=== PATIENT | female | born 1995 ===

== ENCOUNTER 2017-08-17 17:24 | Emergency (ER) | payer OTHER ==
[2017-08-17 17:36] VITALS: BP 120/65; PULSE 58; RESP 18; TEMP 98; O2SAT 100
--- NOTE | 2017-08-17 17:57 | ED PDOC ---
HPI: General Adult Time Seen by Provider: 08/17/17 17:47 Chief Complaint (Nursing): GI Problem History Per: Patient (Hemorrhoids and rectal pain. Scant bleeding when wiping. Denies abd pain.) Onset/Duration Of Symptoms: Days (2) Current Symptoms Are (Timing): Still Present Severity: Mild Pain Scale Rating Of: 2 Past Medical History Vital Signs: Last Vital Signs Temp 98.0 F 08/17/17 17:34 Pulse 58 L 08/17/17 17:34 Resp 18 08/17/17 17:34 BP 120/65 08/17/17 17:34 Pulse Ox 100 08/17/17 17:34 - Medical History PMH: Gastritis - Family History Family History: States: Unknown Family Hx - Immunization History Hx Tetanus Toxoid Vaccination: No Hx Influenza Vaccination: No Hx Pneumococcal Vaccination: No - Home Medications Home Medications: Ambulatory Orders Medication Instructions Recorded Cyclobenzaprine [Cyclobenzaprine 10 mg PO Q8 #9 tab 07/02/17 HCl] Ibuprofen [Motrin] 600 mg PO TID #30 tab 07/02/17 Omeprazole Magnesium [Prilosec Otc] 20 mg PO DAILY 07/02/17 Docusate Sodium [Colace] 100 mg PO HS #10 capsule 08/17/17 Hydrocortisone-Pramoxine 1%-1% 1 appl TP DAILY #10 aer 08/17/17 [Proctofoam-Hc 1%-1%] - Allergies Allergies/Adverse Reactions: Allergies Allergy/AdvReac Type Severity Reaction Status Date / Time No Known Allergies Allergy Verified 08/17/17 17:34 Review of Systems Constitutional: Negative for: Fever Gastrointestinal: Positive for: Abdominal Pain, Rectal Pain Physical Exam - Physical Exam Appears: Positive for: Non-toxic, In Acute Distress Gastrointestinal/Abdominal: Positive for: Bowel Sounds, Soft. Negative for: Tenderness Rectal: Positive for: Hemorrhoids (ext, nonthrombosed. reducible) - ECG O2 Sat by Pulse Oximetry: 100 Disposition - Clinical Impression Clinical Impression: Hemorrhoids - Patient ED Disposition Is Patient to be Admitted: No Counseled Patient/Family Regarding: Diagnosis, Need For Followup, Rx Given - Disposition Referrals: [facility] [Outside] Disposition: Routine/Home Disposition Time: 17:57 Condition: FAIR Prescriptions: Docusate Sodium [Colace] 100 mg PO HS #10 capsule Hydrocortisone-Pramoxine 1%-1% [Proctofoam-Hc 1%-1%] 1 appl TP DAILY #10 aer Instructions: Hemorrhoids (ED) Forms: [facility] (Greenlandic) Print Language: CYPRIOT
== END 2017-08-17 18:44 | disposition home or self-care (01) ==
LOC: H.ER 17:24
DX: K64.9 Unspecified hemorrhoids (principal)

== ENCOUNTER 2017-10-24 05:06 | Emergency (ER) | payer OTHER ==
[2017-10-24 05:16] VITALS: BP 110/53; PULSE 67; RESP 16; TEMP 98.2; O2SAT 100
--- NOTE | 2017-10-24 05:39 | ED PDOC ---
HPI: CCC, URI, Sore Throat Time Seen by Provider: 10/24/17 05:20 Chief Complaint (Nursing): Cough, Cold, Congestion Chief Complaint (Provider): Cough, cold, congestion History Per: Patient History/Exam Limitations: no limitations Onset/Duration Of Symptoms: Days (x1 week) Current Symptoms Are (Timing): Still Present Associated Symptoms: Fever, Cough, Nasal Congestion Ear Symptoms: Bilateral: None Additional Complaint(s): Rosemary Leigh is a 22 year old female, with no past medical history , who presents to the emergency department complaining of nasal congestion, runny nose, occasional fever and cough onset for x1 week. Patient denies taking any medication prior to arrival. No further medical complaints. PMD: None provided. Past Medical History Reviewed: Historical Data, Nursing Documentation, Vital Signs Vital Signs: Last Vital Signs Temp 98.2 F 10/24/17 05:14 Pulse 67 10/24/17 05:14 Resp 16 10/24/17 05:14 BP 110/53 L 10/24/17 05:14 Pulse Ox 100 10/24/17 05:43 - Medical History PMH: Gastritis - Surgical History Surgical History: No Surg Hx - Family History Family History: States: Unknown Family Hx - Immunization History Hx Tetanus Toxoid Vaccination: No Hx Influenza Vaccination: No Hx Pneumococcal Vaccination: No - Home Medications Home Medications: Ambulatory Orders Medication Instructions Recorded Cyclobenzaprine [Cyclobenzaprine 10 mg PO Q8 #9 tab 07/02/17 HCl] Ibuprofen [Motrin] 600 mg PO TID #30 tab 07/02/17 Omeprazole Magnesium [Prilosec Otc] 20 mg PO DAILY 07/02/17 Docusate Sodium [Colace] 100 mg PO HS #10 capsule 08/17/17 Hydrocortisone-Pramoxine 1%-1% 1 appl TP DAILY #10 aer 08/17/17 [Proctofoam-Hc 1%-1%] Fluticasone Propionate [Flonase] 1 spr NS DAILY #1 bottle 10/24/17 Ibuprofen [Motrin Tab] 600 mg PO Q6 #30 tab 10/24/17 - Allergies Allergies/Adverse Reactions: Allergies Allergy/AdvReac Type Severity Reaction Status Date / Time No Known Allergies Allergy Verified 08/17/17 17:34 Review of Systems ROS Statement: Except As Marked, All Systems Reviewed And Found Negative Constitutional: Positive for: Fever ENT: Positive for: Nose Discharge, Nose Congestion Respiratory: Positive for: Cough Physical Exam - Reviewed Nursing Documentation Reviewed: Yes Vital Signs Reviewed: Yes - Physical Exam Appears: Positive for: Well, Non-toxic, No Acute Distress Head Exam: Positive for: ATRAUMATIC, NORMAL INSPECTION, NORMOCEPHALIC Skin: Positive for: Normal Color, Warm, Dry Eye Exam: Positive for: Normal appearance ENT: Positive for: Nasal Congestion, Other (clear nasal discharge) Neck: Positive for: Normal, Painless ROM, Supple Cardiovascular/Chest: Positive for: Regular Rate, Rhythm. Negative for: Murmur Respiratory: Positive for: Normal Breath Sounds. Negative for: Respiratory Distress Gastrointestinal/Abdominal: Positive for: Normal Exam, Soft. Negative for: Tenderness Back: Positive for: Normal Inspection. Negative for: L CVA Tenderness, R CVA Tenderness Extremity: Positive for: Normal ROM. Negative for: Deformity, Swelling Neurologic/Psych: Positive for: Alert, Oriented - ECG O2 Sat by Pulse Oximetry: 100 (RA) Pulse Ox Interpretation: Normal Medical Decision Making Medical Decision Making: Initial Impression: URI Initial Plan: --Decadron 10 mg PO --Motrin tab 600 mg PO --reevaluation 05:35 --Upon provider evaluation patient is medically stable, and requires no further treatment in the ED at this time. Patient will be discharged home with Rx for Flonase and Motrin. Counseling was provided and all questions were answered regarding diagnosis and need for follow up with clinic. There is agreement to discharge plan. Return if symptoms persist or worsen. Scribe Attestation: Documented by Andrzej Griffin, acting as a scribe for Jae Rhodes MD Provider Scribe Attestation: All medical record entries made by the Scribe were at my direction and personally dictated by me. I have reviewed the chart and agree that the record accurately reflects my personal performance of the history, physical exam, medical decision making, and the department course for this patient. I have also personally directed, reviewed, and agree with the discharge instructions and disposition. Disposition - Clinical Impression Clinical Impression: Postnasal drip, Nasal congestion - Disposition Referrals: [facility] [Outside] Disposition Time: 05:40 Condition: STABLE Prescriptions: Fluticasone Propionate [Flonase] 1 spr NS DAILY #1 bottle Ibuprofen [Motrin Tab] 600 mg PO Q6 #30 tab Instructions: Rhinosinusitis (ED), Cold Symptoms (ED) Forms: [facility] (Georgian) Print Language: SAMI
== END 2017-10-24 06:47 | disposition home or self-care (01) ==
LOC: H.ER 05:06
DX: J32.9 Chronic sinusitis, unspecified (principal)
CPT/HCPCS: 99281; J8540

== ENCOUNTER 2017-12-23 16:13 | Emergency (ER) | payer OTHER ==
[2017-12-23 16:19] VITALS: BP 115/73; PULSE 71; RESP 16; TEMP 97.6; O2SAT 99
--- NOTE | 2017-12-23 17:35 | ED PDOC ---
Lower Extremity Pain/Injury Time Seen by Provider: 12/23/17 16:32 Chief Complaint (Nursing): Lower Extremity Problem/Injury Chief Complaint (Provider): b/l foot pain History Per: Patient History/Exam Limitations: no limitations Onset/Duration Of Symptoms: Days (x1 week) Current Symptoms Are (Timing): Still Present Additional Complaint(s): Rosemary Leigh is a 22 year old female, with no significant past medical history, who presents to the emergency department complaining of bilateral foot pain onset for x1 week. Patient states the pain is more severe today and feel swollen. Patient denies taking any medication for the pain. She denies any trauma or other medical complaints. PMD: None provided. Past Medical History Reviewed: Historical Data, Nursing Documentation, Vital Signs Vital Signs: Last Vital Signs Temp 97.6 F 12/23/17 16:16 Pulse 71 12/23/17 16:16 Resp 16 12/23/17 16:16 BP 115/73 12/23/17 16:16 Pulse Ox 99 12/23/17 16:16 - Medical History PMH: Gastritis - Surgical History Surgical History: No Surg Hx - Family History Family History: States: Unknown Family Hx - Social History Current smoker - smoking cessation education provided: No Alcohol: None Drugs: Denies - Immunization History Hx Tetanus Toxoid Vaccination: No Hx Influenza Vaccination: No Hx Pneumococcal Vaccination: No - Home Medications Home Medications: Ambulatory Orders Medication Instructions Recorded Cyclobenzaprine [Cyclobenzaprine 10 mg PO Q8 #9 tab 07/02/17 HCl] Ibuprofen [Motrin] 600 mg PO TID #30 tab 07/02/17 Omeprazole Magnesium [Prilosec Otc] 20 mg PO DAILY 07/02/17 Docusate Sodium [Colace] 100 mg PO HS #10 capsule 08/17/17 Hydrocortisone-Pramoxine 1%-1% 1 appl TP DAILY #10 aer 08/17/17 [Proctofoam-Hc 1%-1%] Fluticasone Propionate [Flonase] 1 spr NS DAILY #1 bottle 10/24/17 Ibuprofen [Motrin Tab] 600 mg PO Q6 #30 tab 10/24/17 Famotidine [Pepcid] 20 mg PO DAILY #10 tab 12/23/17 Ibuprofen [Motrin Tab] 800 mg PO Q6H PRN #20 tab 12/23/17 - Allergies Allergies/Adverse Reactions: Allergies Allergy/AdvReac Type Severity Reaction Status Date / Time No Known Allergies Allergy Verified 08/17/17 17:34 Review of Systems ROS Statement: Except As Marked, All Systems Reviewed And Found Negative Musculoskeletal: Positive for: Foot Pain (b/l ) Physical Exam - Reviewed Nursing Documentation Reviewed: Yes Vital Signs Reviewed: Yes - Physical Exam Appears: Positive for: Well, Non-toxic, No Acute Distress Head Exam: Positive for: ATRAUMATIC, NORMAL INSPECTION, NORMOCEPHALIC Skin: Positive for: Normal Color, Warm, Dry Eye Exam: Positive for: Normal appearance Neck: Positive for: Painless ROM Respiratory: Negative for: Respiratory Distress Extremity: Positive for: Normal ROM, Tenderness (to planar fascia bilaterally). Negative for: Deformity, Swelling Neurologic/Psych: Positive for: Alert - ECG O2 Sat by Pulse Oximetry: 99 (RA) Pulse Ox Interpretation: Normal Medical Decision Making Medical Decision Making: Initial Impression: plantar fasciitis Initial Plan: --Advised patient to massage the foot, perform stretching exercises, wear arched shoes and RICE instructions. --Patient will be discharged home with Rx for motrin and pepcid. Counseling was provided and all questions were answered regarding diagnosis and need for follow up with podiatry if symptoms persist or worsen. There is agreement to discharge plan. ~ Scribe Attestation: Documented by Andrzej Griffin, acting as a scribe for Pita Tyler PA-C. Provider Scribe Attestation: All medical record entries made by the Scribe were at my direction and personally dictated by me. I have reviewed the chart and agree that the record accurately reflects my personal performance of the history, physical exam, medical decision making, and the department course for this patient. I have also personally directed, reviewed, and agree with the discharge instructions and disposition. Disposition - Clinical Impression Clinical Impression: Plantar fasciitis, bilateral - Disposition Referrals: Podiatry Clinic [Outside] Disposition: Routine/Home Disposition Time: 17:30 Condition: STABLE Prescriptions: Famotidine [Pepcid] 20 mg PO DAILY #10 tab Ibuprofen [Motrin Tab] 800 mg PO Q6H PRN #20 tab PRN Reason: Pain Instructions: Plantar Fasciitis Exercises Forms: [facility] (Chinese) Print Language: NORWEGIAN
== END 2017-12-23 18:18 | disposition home or self-care (01) ==
LOC: H.ER 16:13
DX: M72.2 Plantar fascial fibromatosis (principal)